=== PATIENT | male | born 1965 | race Caucasian/White ===

== ENCOUNTER → 2017-02-22 | Outpatient (CLI) | payer BC, OTHER ==
[2017-02-22 10:48] LABS: ALBUMIN 3.9 GM/DL (3.2-5.2); ALKALINE PHOSPHATASE 75 U/L (45-117); ALT/SGPT 48 U/L (12-78); ANION GAP 5 MEQ/L (8-16); AST/SGOT 18 U/L (7-37); BILIRUBIN,TOTAL 0.7 MG/DL (0.2-1.0); BLOOD UREA NITROGEN 17 MG/DL (7-18); CALCIUM LEVEL 8.6 MG/DL (8.5-10.1); CARBON DIOXIDE LEVEL 32 MEQ/L (21-32); CHLORIDE LEVEL 105 MEQ/L (98-107); CHOLESTEROL LEVEL 253 MG/DL (<200); CREATININE FOR GFR 1.04 MG/DL (0.70-1.30); GLOMERULAR FILTRATION RATE > 60.0 (>56); GLUCOSE, FASTING 83 MG/DL (70-105); POTASSIUM SERUM 4.7 MEQ/L (3.5-5.1); PSA SCREENING 0.55 NG/ML (< 4.0); SODIUM LEVEL 142 MEQ/L (136-145); TOTAL PROTEIN 6.9 GM/DL (6.4-8.2); TRIGLYCERIDES LEVEL 218 MG/DL (<150)
== END ==
LOC: M LAB 09:25
DX: E78.2 Mixed hyperlipidemia (principal)
CPT/HCPCS: 80053

== ENCOUNTER 2017-05-01 10:26 | Day surgery (SDC) | payer BC, OTHER ==
[2017-05-01] MEDS: NS 1,000 ML IV (10:30)
[2017-05-01] MEDS ORDERED: fentaNYL 100 MCG/2 ML INJECTION (J3010) As Ordered (11:33)
[2017-05-01] MEDS ORDERED: PROPOFOL 200 MG/20 ML VIAL As Ordered (11:33)
[2017-05-01] MEDS ORDERED: LIDOCAINE 2% INJ 100 MG/5 ML SDV (FOR ANES.) As Ordered (11:33)
== END 2017-05-01 12:15 | disposition home or self-care (01) ==
LOC: M OPP 10:26
DX: Z12.11 Encounter for screening for malignant neoplasm of colon (principal); K64.0 First degree hemorrhoids; Z80.0 Family history of malignant neoplasm of digestive organs; R12 Heartburn; K31.89 Other diseases of stomach and duodenum; K44.9 Diaphragmatic hernia without obstruction or gangrene; E78.5 Hyperlipidemia, unspecified; Z79.82 Long term (current) use of aspirin; Z79.899 Other long term (current) drug therapy
CPT/HCPCS: 45378

== ENCOUNTER → 2017-11-25 | Outpatient (CLI) | payer BC, OTHER ==
[2017-11-25 09:57] LABS: ALBUMIN 3.8 GM/DL (3.2-5.2); ALBUMIN/GLOBULIN RATIO 1.19 (1.00-1.93); ALKALINE PHOSPHATASE 86 U/L (45-117); ALT/SGPT 43 U/L (12-78); ANION GAP 7 MEQ/L (8-16); AST/SGOT 19 U/L (7-37); BILIRUBIN,TOTAL 0.3 MG/DL (0.2-1.0); BLOOD UREA NITROGEN 16 MG/DL (7-18); CALCIUM LEVEL 8.4 MG/DL (8.5-10.1); CARBON DIOXIDE LEVEL 28 MEQ/L (21-32); CHLORIDE LEVEL 107 MEQ/L (98-107); CHOLESTEROL LEVEL 265 MG/DL (<200); CHOLESTEROL RISK RATIO 6.625 (<5); CREATININE FOR GFR 0.96 MG/DL (0.70-1.30); FREE T4 0.94 NG/DL (0.76-1.46); GLOMERULAR FILTRATION RATE > 60.0 (>56); GLUCOSE, FASTING 98 MG/DL (70-100); HDL CHOLESTEROL 40 MG/DL (>40); LDL CHOLESTEROL 171 MG/DL (<100); NON-HDL-C 225 MG/DL; POTASSIUM SERUM 4.7 MEQ/L (3.5-5.1); PSA SCREENING 0.41 NG/ML (< 4.0); SODIUM LEVEL 142 MEQ/L (136-145); TRIGLYCERIDES LEVEL 270 MG/DL (<150)
[2017-11-28 00:07] LABS: TESTOSTERONE FREE (DIRECT) 5.9 pg/mL (7.2-24.0)
== END ==
LOC: M LAB 08:52
DX: E78.2 Mixed hyperlipidemia (principal); Z12.5 Encounter for screening for malignant neoplasm of prostate; N52.9 Male erectile dysfunction, unspecified
CPT/HCPCS: 84403

== ENCOUNTER → 2018-02-19 | Outpatient (REF) | payer OTHER ==
[2018-02-22 14:13] LABS: TESTOSTERONE FREE (DIRECT) 13.8 pg/mL (7.2-24.0)
== END ==
LOC: M LABDRWAD 12:51
PROVIDERS: ATTEND Family Medicine
DX: N52.9 Male erectile dysfunction, unspecified (principal)

== ENCOUNTER → 2018-04-26 | Outpatient (REF) | payer OTHER ==
[2018-04-26 13:01] LABS: BASO % 0.6 % (0.0-1.0); EOS # 0.2 10^3/uL (0.0-0.50); EOS % 4.1 % (0.0-3.0); HEMATOCRIT 48.8 % (42.0-52.0); HEMOGLOBIN 15.7 g/dl (13.5-17.5); LYMPH # 1.3 10^3/uL (1.5-4.5); LYMPH % 25.4 % (24.0-44.0); MEAN CORPUSCULAR HGB CONC 32.2 g/dl (32.0-36.5); MONO # 0.5 10^3/uL (0.0-0.8); MONO % 10.4 % (0.0-5.0); NEUTROPHILS % 59.1 % (36.0-66.0); PLATELET COUNT, AUTOMATED 274 10^3/uL (150-450); RED BLOOD COUNT 5.42 10^6/uL (4.30-6.10); WHITE BLOOD COUNT 5.1 10^3/uL (4.0-10.0)
[2018-04-26 13:04] LABS: ALT/SGPT 45 U/L (12-78); BILIRUBIN,TOTAL 0.4 MG/DL (0.2-1.0); BLOOD UREA NITROGEN 18 MG/DL (7-18); CALCIUM LEVEL 8.6 MG/DL (8.5-10.1); CARBON DIOXIDE LEVEL 30 MEQ/L (21-32); CHLORIDE LEVEL 106 MEQ/L (98-107); CHOLESTEROL LEVEL 230 MG/DL (<200); CHOLESTEROL RISK RATIO 5.609 (<5); CREATININE FOR GFR 0.98 MG/DL (0.70-1.30); GLOMERULAR FILTRATION RATE > 60.0 (>56); GLUCOSE, FASTING 85 MG/DL (70-100); HDL CHOLESTEROL 41 MG/DL (>40); LDL CHOLESTEROL 152 MG/DL (<100); NON-HDL-C 189 MG/DL; POTASSIUM SERUM 4.7 MEQ/L (3.5-5.1); SODIUM LEVEL 142 MEQ/L (136-145); TOTAL PROTEIN 7.1 GM/DL (6.4-8.2); TRIGLYCERIDES LEVEL 185 MG/DL (<150)
[2018-04-26 13:14] LABS: TESTOSTERONE 131 NG/DL (241-827)
== END ==
LOC: M SFHCADAM 08:40
PROVIDERS: ATTEND Family Medicine
DX: E34.9 Endocrine disorder, unspecified (principal); R51 Headache; I10 Essential (primary) hypertension

== ENCOUNTER → 2018-05-03 | Outpatient (CLI) | payer BC, OTHER ==
--- NOTE | 2018-05-03 17:08 | REP ---
Clinical: Hypertension and chronic medical renal disease. Technique: Gonzalez scale and color Doppler evaluation of the kidneys and renal vasculature using curved array transducer. Findings: The kidneys are essentially normal in contour size and echogenicity and reniform shape without hydronephrosis, nephrolithiasis, cystic or renal mass lesion. Right kidney measures 12.3 x 5.9 x 4.3 cm . Left kidney measures 12.5 x 7.0 x 5.9 cm. Bladder is incompletely distended and grossly normal by current evaluation. Color Doppler evaluation of the renal vasculature demonstrates normal arterial wave patterns, velocities, renal aortic ratios, resistive indices and the acceleration time. No sonographic evidence for renal arterial stenosis noted. Renal vein is patent. Right Kidney: Peak arterial velocity: 105.2 cm/sec . Renal aortic ratio: 1.2 . Resistive indices: 0.6 - 0.7 . Acceleration times: 0.01 - 0.05 . Left kidney: Peak arterial velocity: 77.4 cm/sec . Renal aortic ratio: 0.9 . Resistive indices: 0.5 - 0.6 . Acceleration times: 0.02 - 0.03 . Impression: 1. Kidneys appear relatively normal. 2. No evidence for renal arterial stenosis. Electronically Signed by Aries Zabala MD 05/03/2018 04:59 P
== END ==
LOC: M RAD 07:24
PROVIDERS: ATTEND Family Medicine
DX: I10 Essential (primary) hypertension (principal)

== ENCOUNTER → 2018-05-23 | Outpatient (REF) | payer OTHER, BC ==
[2018-05-23 19:35] LABS: BASO % 0.7 % (0.0-1.0); EOS # 0.1 10^3/uL (0.0-0.50); EOS % 2.4 % (0.0-3.0); HEMATOCRIT 45.5 % (42.0-52.0); LYMPH # 1.4 10^3/uL (1.5-4.5); LYMPH % 24.2 % (24.0-44.0); MEAN CORPUSCULAR HEMOGLOBIN 29.2 pg (27.0-33.0); MEAN CORPUSCULAR VOLUME 88.5 fl (80.0-96.0); MONO # 0.5 10^3/uL (0.0-0.8); MONO % 8.7 % (0.0-5.0); NEUTROPHILS # 3.8 10^3/uL (1.8-7.7); NEUTROPHILS % 63.8 % (36.0-66.0); PLATELET COUNT, AUTOMATED 327 10^3/uL (150-450); RED BLOOD COUNT 5.14 10^6/uL (4.30-6.10)
[2018-05-23 19:42] LABS: ALBUMIN 4.2 GM/DL (3.2-5.2); ALT/SGPT 38 U/L (12-78); BILIRUBIN,TOTAL 0.7 MG/DL (0.2-1.0); BLOOD UREA NITROGEN 19 MG/DL (7-18); CARBON DIOXIDE LEVEL 30 MEQ/L (21-32); CHLORIDE LEVEL 106 MEQ/L (98-107); FOLATE 20.3 NG/ML; FREE T4 1.03 NG/DL (0.76-1.46); GLOMERULAR FILTRATION RATE > 60.0 (>56); GLUCOSE, FASTING 76 MG/DL (70-100); POTASSIUM SERUM 4.7 MEQ/L (3.5-5.1); RHEUMATOID FACTOR QUANT < 10.0 IU/ML (<15.0); SODIUM LEVEL 141 MEQ/L (136-145); TOTAL PROTEIN 7.1 GM/DL (6.4-8.2); VITAMIN B12 LEVEL 623 PG/ML
[2018-05-23 20:32] LABS: ERYTHROCYTE SEDIMENTATION RATE 4 mm/hr (0-20)
[2018-05-25 14:18] LABS: ANTINUCLEAR ANTIBODIES DIRECT Negative (Negative); Lyme Disease IgG/IgM Antibodie <0.91 ISR (0.00-0.90); Lyme Disease IgM Ab Quantitati <0.80 index (0.00-0.79)
[2018-05-28 00:07] LABS: VITAMIN E(ALPHA TOCOPHEROL) 13.4 mg/L (7.0-25.1); VITAMIN E(GAMMA TOCOPHEROL) 0.8 mg/L (0.5-5.5)
[2018-05-29 14:53] LABS: VITAMIN B1 LEVEL WHOLE BLOOD 138.4 nmol/L (66.5-200.0); VITAMIN B6,PYRIDOXAL PHOSPHATE 47.9 ug/L (5.3-46.7)
== END ==
LOC: M LABNEURO 13:59
PROVIDERS: ATTEND Psychiatry & Neurology Neurology
DX: E07.9 Disorder of thyroid, unspecified (principal); Z11.9 Encounter for screening for infectious and parasitic diseases, unspecified; R51 Headache

== ENCOUNTER → 2018-07-24 | Outpatient (CLI) | payer OTHER, BC ==
[2018-07-24 10:06] LABS: CHOLESTEROL RISK RATIO 3.173 (<5)
== END ==
LOC: M WUC 08:22
PROVIDERS: ATTEND Internal Medicine
DX: E78.5 Hyperlipidemia, unspecified (principal)

== ENCOUNTER → 2018-11-27 | Outpatient (CLI) | payer OTHER, BC ==
[2018-11-27 10:32] LABS: CHOLESTEROL RISK RATIO 3.58 (<5)
== END ==
LOC: M WUC 08:10
DX: E78.5 Hyperlipidemia, unspecified (principal)

== ENCOUNTER → 2019-01-23 | Outpatient (CLI) | payer BC, OTHER ==
[2019-01-23 08:41] LABS: CHOLESTEROL RISK RATIO 1.121 (<5)
== END ==
LOC: M LAB 07:38
PROVIDERS: ATTEND Internal Medicine
DX: E78.5 Hyperlipidemia, unspecified (principal)

== ENCOUNTER → 2019-02-07 | Outpatient (CLI) | payer BC, OTHER ==
--- NOTE | 2019-02-07 16:02 | REP ---
Chest x-ray: Two views. History: chronic bronchitis with productive cough. . Comparison study: January 28, 2011 . Findings: The lungs are well inflated and free of infiltrate. There is minimal plate-like atelectasis in the right lower lobe overlying the dome of the diaphragm on the frontal view and posterior elements of the spine on lateral radiograph. The pleural angles are sharp. The heart size is normal. Pulmonary vasculature is not increased. No significant bony abnormality is seen. Impression: Plate-like atelectasis right lower lobe. Otherwise negative chest x-ray. Electronically Signed by Rell Aranda MD 02/07/2019 03:54 P
== END ==
LOC: M ADAMS 15:40
PROVIDERS: ATTEND Family Medicine
DX: J41.1 Mucopurulent chronic bronchitis (principal)

== ENCOUNTER → 2019-05-13 | Outpatient (CLI) | payer OTHER, BC ==
[2019-05-13 10:52] LABS: CHOLESTEROL RISK RATIO 1.901 (<5)
== END ==
LOC: M WUC 08:13
PROVIDERS: ATTEND Nurse Practitioner Adult Health
DX: E78.5 Hyperlipidemia, unspecified (principal)

== ENCOUNTER 2019-09-09 09:36 | Emergency (ER) | payer BC, OTHER ==
[~2019-09-09] VITALS: Ht 177.8 cm; Wt 85.4 kg
[2019-09-09 11:09] LABS: BASO % 0.6 % (0.0-1.0); EOS # 0.5 10^3/uL (0.0-0.5); EOS % 8.6 % (0.0-3.0); HEMATOCRIT 46.2 % (42.0-52.0); HEMOGLOBIN 15.1 g/dl (13.5-17.5); LYMPH # 1.5 10^3/uL (1.5-5.0); LYMPH % 24.4 % (24.0-44.0); MEAN CORPUSCULAR HEMOGLOBIN 29.2 pg (27.0-33.0); MEAN CORPUSCULAR HGB CONC 32.7 g/dl (32.0-36.5); MEAN CORPUSCULAR VOLUME 89.2 fl (80.0-96.0); MONO # 0.5 10^3/uL (0.0-0.8); MONO % 7.7 % (0.0-5.0); NEUTROPHILS # 3.7 10^3/uL (1.5-8.5); NEUTROPHILS % 58.2 % (36.0-66.0); PLATELET COUNT, AUTOMATED 250 10^3/uL (150-450); RED BLOOD COUNT 5.18 10^6/uL (4.30-6.10); WHITE BLOOD COUNT 6.3 10^3/uL (4.0-10.0)
[2019-09-09 11:35] LABS: ALBUMIN 3.6 GM/DL (3.2-5.2); BILIRUBIN,DIRECT 0.1 MG/DL (0.0-0.2); BILIRUBIN,TOTAL 0.2 MG/DL (0.2-1.0); TOTAL PROTEIN 6.6 GM/DL (6.4-8.2)
[2019-09-09] MEDS ORDERED: LIVA1TAB PO (11:41)
[2019-09-09] MEDS ORDERED: CENT1TAB PO (11:41)
[2019-09-09] MEDS ORDERED: vit d (11:41)
[2019-09-09] MEDS ORDERED: AMLO25TA PO (11:41)
[2019-09-09] MEDS ORDERED: PANT20TA6 PO (11:41)
[2019-09-09] MEDS ORDERED: ALLE24TA7 PO (11:41)
[2019-09-09] MEDS ORDERED: EZET10TA21 PO (11:41)
[2019-09-09] MEDS ORDERED: REPA420I2 SC (11:41)
--- NOTE | 2019-09-09 11:58 | REP ---
CHEST, SINGLE VIEW: There is no evidence of acute infiltrate. No pleural effusion is seen. The heart is normal in size. The mediastinal silhouette is unremarkable. The visualized osseous structures are intact. IMPRESSION: No acute pulmonary disease. Electronically Signed by Julius Gonzalez MD 09/10/2019 10:52 P
[2019-09-09] MEDS ORDERED: PROT1TAB2 PO (13:57)
[2019-09-09 14:00] VITALS: BP 132/93
--- NOTE | 2019-09-09 16:31 | ECGEPIP ---
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
--- NOTE | 2019-09-09 16:34 | ECGEPIP ---
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
== END 2019-09-09 14:17 | disposition home or self-care (01) ==
LOC: M ED 09:36
DX: K21.9 Gastro-esophageal reflux disease without esophagitis (principal); R94.31 Abnormal electrocardiogram [ECG] [EKG]; I10 Essential (primary) hypertension; E78.5 Hyperlipidemia, unspecified; Z82.49 Family history of ischemic heart disease and other diseases of the circulatory system; Z79.899 Other long term (current) drug therapy

== ENCOUNTER → 2019-11-20 | Outpatient (CLI) | payer OTHER, BC ==
[~2019-11-20] MED LIST: ALLE24TA7 PO; AMLO25TA PO; CENT1TAB PO; EZET10TA21 PO; LIVA1TAB PO; PANT20TA6 PO; PROT1TAB2 PO; REPA420I2 SC; vit d
[2019-11-20 10:13] LABS: CHOLESTEROL RISK RATIO 1.879 (<5)
== END ==
LOC: M WUC 08:19
PROVIDERS: ATTEND Internal Medicine
DX: E78.5 Hyperlipidemia, unspecified (principal)

== ENCOUNTER → 2019-11-20 | Outpatient (CLI) | payer OTHER, BC ==
[2019-11-20 10:11] LABS: ALBUMIN 3.8 GM/DL (3.2-5.2); ALT/SGPT 30 U/L (12-78); BILIRUBIN,TOTAL 0.5 MG/DL (0.2-1.0); BLOOD UREA NITROGEN 21 MG/DL (7-18); CALCIUM LEVEL 9.2 MG/DL (8.5-10.1); CARBON DIOXIDE LEVEL 31 MEQ/L (21-32); CHLORIDE LEVEL 108 MEQ/L (98-107); CREATININE FOR GFR 1.04 MG/DL (0.70-1.30); GLOMERULAR FILTRATION RATE > 60.0 (>56); GLUCOSE, FASTING 109 MG/DL (70-100); POTASSIUM SERUM 4.8 MEQ/L (3.5-5.1); SODIUM LEVEL 144 MEQ/L (136-145); TOTAL PROTEIN 7.2 GM/DL (6.4-8.2)
== END ==
LOC: M WUC 08:22
PROVIDERS: ATTEND Family Medicine
DX: Z12.5 Encounter for screening for malignant neoplasm of prostate (principal); I10 Essential (primary) hypertension
CPT/HCPCS: 80053; G0103

== ENCOUNTER → 2020-01-17 | Outpatient (REF) | payer OTHER | LOC: M SFHCADAM 13:20 | PROVIDERS: ATTEND Family Medicine | DX: G47.33 Obstructive sleep apnea (adult) (pediatric) (principal); E78.2 Mixed hyperlipidemia; Z12.5 Encounter for screening for malignant neoplasm of prostate ==

== ENCOUNTER → 2020-06-29 | Outpatient (REF) | payer OTHER ==
[2020-06-29 12:55] LABS: HEMATOCRIT 49.1 % (42.0-52.0); HEMOGLOBIN 16.1 g/dl (13.5-17.5); MEAN CORPUSCULAR HEMOGLOBIN 29.5 pg (27.0-33.0); MEAN CORPUSCULAR HGB CONC 32.8 g/dl (32.0-36.5); MEAN CORPUSCULAR VOLUME 90.1 fl (80.0-96.0); PLATELET COUNT, AUTOMATED 329 10^3/uL (150-450); RED BLOOD COUNT 5.45 10^6/uL (4.30-6.10)
[2020-06-29 15:23] LABS: ALT/SGPT 41 U/L (12-78); BILIRUBIN,TOTAL 0.5 MG/DL (0.2-1.0); BLOOD UREA NITROGEN 17 MG/DL (7-18); CALCIUM LEVEL 9.4 MG/DL (8.5-10.1); CARBON DIOXIDE LEVEL 29 MEQ/L (21-32); CHLORIDE LEVEL 106 MEQ/L (98-107); CHOLESTEROL LEVEL 113 MG/DL (<200); CHOLESTEROL RISK RATIO 1.712 (<5); CREATININE FOR GFR 1.05 MG/DL (0.70-1.30); GLOMERULAR FILTRATION RATE > 60.0 (>56); GLUCOSE, FASTING 93 MG/DL (70-100); HDL CHOLESTEROL 66 MG/DL (>40); LDL CHOLESTEROL 35 MG/DL (<100); NON-HDL-C 47 MG/DL; POTASSIUM SERUM 4.9 MEQ/L (3.5-5.1); SODIUM LEVEL 141 MEQ/L (136-145); TRIGLYCERIDES LEVEL 58 MG/DL (<150)
[2020-06-29 15:24] LABS: TESTOSTERONE 250 NG/DL (241-827)
== END ==
LOC: M SFHCADAM 10:25
PROVIDERS: ATTEND Family Medicine
DX: J41.1 Mucopurulent chronic bronchitis (principal); E78.2 Mixed hyperlipidemia; E34.9 Endocrine disorder, unspecified

== ENCOUNTER → 2020-07-02 | Outpatient (CLI) | payer BC, OTHER ==
--- NOTE | 2020-07-02 11:33 | REP ---
INDICATION: CHRONIC BRONCHITIS WITH PRODUCTIVE MUCOPURULENT COUGH. COMPARISON: Comparison chest x-ray September 09, 2019. TECHNIQUE: Two views.. FINDINGS: The lungs are well inflated and free of infiltrate. The pleural angles are sharp. The heart size is normal. Pulmonary vasculature is not increased. No significant bony abnormality is seen. There is some linear platelike atelectasis in the right base posteriorly overlying the dome of the liver on the frontal view. IMPRESSION: Platelike atelectasis right base. Otherwise negative chest x-ray.. <Electronically signed by Brennan Aranda > 07/02/20 1125
== END ==
LOC: M ADAMS 11:17
PROVIDERS: ATTEND Family Medicine
DX: J41.1 Mucopurulent chronic bronchitis (principal)

== ENCOUNTER → 2020-08-12 | Outpatient (CLI) | payer BC, OTHER ==
--- NOTE | 2020-08-13 07:37 | REP ---
INDICATION: COUGH COMPARISON: Chest x-ray dated 07/02/2020 TECHNIQUE: Axial noncontrast images from the thoracic inlet to the upper abdomen with coronal and sagittal reformations. This CT examination was performed using the following dose reduction techniques: Automated exposure control, adjustment of mA and/or kv according to the patient's size, and use of iterative reconstruction technique. FINDINGS: Bilateral lung [place] are relatively well aerated. Mild linear bibasilar fibroatelectatic changes are noted (right greater than left) and likely chronic. No acute consolidation, effusion, or pneumothorax. Tracheobronchial tree is patent. No obvious axillary, hilar, or mediastinal adenopathy noted. Further evaluation of the mediastinum demonstrates normal thoracic aorta, pulmonary vasculature, and heart/pericardium. Surrounding musculoskeletal structures are intact and without acute osseous abnormality. IMPRESSION: 1. Mild linear bibasilar fibroatelectatic changes. No prior examinations are available for comparison. Consider 3-6 month follow-up examination to confirm stability. 2. No acute consolidation or effusion otherwise noted. <Electronically signed by Aries Zabala > 08/13/20 [id number]
== END ==
LOC: M RAD 11:12
PROVIDERS: ATTEND Nurse Practitioner Family
DX: R05 Cough (principal)

== ENCOUNTER → 2020-12-09 | Outpatient (CLI) | payer BC, OTHER ==
--- NOTE | 2020-12-09 09:07 | REP ---
INDICATION: BRONCHITIS COMPARISON: 07/02/2020 TECHNIQUE: PA and lateral. FINDINGS: The mediastinum and cardiac silhouette are normal. The lung aust[place] are clear and without acute consolidation, effusion, or pneumothorax. The skeletal structures are intact and normal. IMPRESSION: No acute cardiopulmonary process. <Electronically signed by Aries Zabala > 12/09/20 0903
[2020-12-09 11:48] LABS: HEMATOCRIT 47.6 % (42.0-52.0); HEMOGLOBIN 15.6 g/dl (13.5-17.5); MEAN CORPUSCULAR HEMOGLOBIN 29.7 pg (27.0-33.0); MEAN CORPUSCULAR HGB CONC 32.8 g/dl (32.0-36.5); MEAN CORPUSCULAR VOLUME 90.7 fl (80.0-96.0); PLATELET COUNT, AUTOMATED 298 10^3/uL (150-450); RED BLOOD COUNT 5.25 10^6/uL (4.30-6.10); WHITE BLOOD COUNT 7.5 10^3/uL (4.0-10.0)
[2020-12-09 12:24] LABS: ALBUMIN 3.7 GM/DL (3.2-5.2); ALT/SGPT 29 U/L (12-78); BILIRUBIN,TOTAL 0.7 MG/DL (0.2-1.0); BLOOD UREA NITROGEN 14 MG/DL (7-18); CALCIUM LEVEL 8.8 MG/DL (8.5-10.1); CARBON DIOXIDE LEVEL 31 MEQ/L (21-32); CHLORIDE LEVEL 106 MEQ/L (98-107); CHOLESTEROL LEVEL 148 MG/DL (<200); CHOLESTEROL RISK RATIO 2.508 (<5); CREATININE FOR GFR 1.09 MG/DL (0.70-1.30); GLOMERULAR FILTRATION RATE > 60.0 (>56); GLUCOSE, FASTING 91 MG/DL (70-100); HDL CHOLESTEROL 59 MG/DL (>40); LDL CHOLESTEROL 64 MG/DL (<100); NON-HDL-C 89 MG/DL; POTASSIUM SERUM 4.6 MEQ/L (3.5-5.1); SODIUM LEVEL 141 MEQ/L (136-145); TOTAL PROTEIN 7.2 GM/DL (6.4-8.2); TRIGLYCERIDES LEVEL 124 MG/DL (<150)
== END ==
LOC: M WUC 08:47
PROVIDERS: ATTEND Family Medicine
DX: Z12.5 Encounter for screening for malignant neoplasm of prostate (principal); J41.1 Mucopurulent chronic bronchitis; E78.2 Mixed hyperlipidemia; I25.10 Atherosclerotic heart disease of native coronary artery without angina pectoris; R06.00 Dyspnea, unspecified
CPT/HCPCS: 71046; 80053; 80061; 85027; G0103

== ENCOUNTER → 2021-02-23 | Outpatient (CLI) | payer BC, OTHER | LOC: M PLAIMG 15:06 | PROVIDERS: ATTEND Nurse Practitioner Family | DX: R91.8 Other nonspecific abnormal finding of lung field (principal) ==

== ENCOUNTER → 2021-06-09 | Outpatient (CLI) | payer BC, OTHER ==
[2021-06-09 10:54] LABS: BLOOD UREA NITROGEN 17 MG/DL (7-18); CREATININE FOR GFR 0.97 MG/DL (0.70-1.30); GLUCOSE, FASTING 90 MG/DL (70-100)
[2021-06-09 10:55] LABS: ALBUMIN 3.8 GM/DL (3.2-5.2); ALT/SGPT 36 U/L (12-78); BILIRUBIN,TOTAL 0.6 MG/DL (0.2-1.0); CALCIUM LEVEL 9.4 MG/DL (8.5-10.1); CARBON DIOXIDE LEVEL 31 MEQ/L (21-32); CHLORIDE LEVEL 110 MEQ/L (98-107); CHOLESTEROL LEVEL 117 MG/DL (<200); CHOLESTEROL RISK RATIO 2.089 (<5); GLOMERULAR FILTRATION RATE > 60.0 (>56); HDL CHOLESTEROL 56 MG/DL (>40); LDL CHOLESTEROL 48 MG/DL (<100); NON-HDL-C 61 MG/DL; POTASSIUM SERUM 4.8 MEQ/L (3.5-5.1); SODIUM LEVEL 144 MEQ/L (136-145); TOTAL PROTEIN 6.9 GM/DL (6.4-8.2); TRIGLYCERIDES LEVEL 66 MG/DL (<150)
== END ==
LOC: M LAB 09:26
PROVIDERS: ATTEND Family Medicine
DX: E78.2 Mixed hyperlipidemia (principal)

== ENCOUNTER 2021-06-24 08:30 | Outpatient (RCR) | payer BC, OTHER | END 2021-06-26 | LOC: M PT 08:30 | PROVIDERS: ATTEND Family Medicine | DX: G44.86 Cervicogenic headache (principal) ==

== ENCOUNTER 2021-07-08 08:30 | Outpatient (RCR) | payer BC, OTHER ==
[2021-07-27] MEDS ORDERED: OMEP40CA5 (11:06)
[2021-07-27] MEDS ORDERED: LEVOTAB10 PO (11:06)
[2021-07-27] MEDS ORDERED: VITA500C24 PO (11:06)
[2021-07-27] MEDS ORDERED: ZINC1TAB2 PO (11:06)
[2021-07-27] MEDS ORDERED: ASPI81TA26 PO (11:06)
[2021-07-27] MEDS ORDERED: VITA100093 PO (11:06)
== END 2021-07-27 ==
LOC: M PT 08:30
PROVIDERS: ATTEND Family Medicine
DX: G44.86 Cervicogenic headache (principal)

== ENCOUNTER → 2021-08-04 | Outpatient (CLI) | payer BC, OTHER ==
[~2021-08-04] MED LIST changes: +ASPI81TA26 PO; +LEVOTAB10 PO; +OMEP40CA5; +VITA100093 PO; +VITA500C24 PO; +ZINC1TAB2 PO
== END ==
LOC: M LABSMTC 10:07
PROVIDERS: ATTEND Anesthesiology
DX: Z01.812 Encounter for preprocedural laboratory examination (principal)

== ENCOUNTER 2021-08-09 09:11 | Day surgery (SDC) | payer BC, OTHER ==
[~2021-08-09] VITALS: Ht 177.8 cm; Wt 86.2 kg
[~2021-08-09 09:11] MED LIST changes: +LIDOCAINE 2% 100MG/5ML SDV (FOR ANES.) As Ordered ONE; +NS 1,000 ML IV ONE; +fentaNYL 100 MCG/2 ML INJECTION As Ordered ONE; +propofoL 500 MG/50 ML VIAL As Ordered ONE
[2021-08-09 11:19] VITALS: BP 130/86
== END 2021-08-09 11:29 | disposition home or self-care (01) ==
LOC: M OPP 09:11
PROVIDERS: ATTEND Internal Medicine Gastroenterology
DX: Z12.11 Encounter for screening for malignant neoplasm of colon (principal); Z80.0 Family history of malignant neoplasm of digestive organs; D12.0 Benign neoplasm of cecum; K57.30 Diverticulosis of large intestine without perforation or abscess without bleeding; K64.0 First degree hemorrhoids; K44.9 Diaphragmatic hernia without obstruction or gangrene; K31.89 Other diseases of stomach and duodenum; R13.10 Dysphagia, unspecified; R12 Heartburn; Z79.82 Long term (current) use of aspirin; Z79.899 Other long term (current) drug therapy
CPT/HCPCS: 43239; 45380; 88305; J3010

== ENCOUNTER → 2021-12-13 | Outpatient (CLI) | payer BC, OTHER ==
[~2021-12-13] MED LIST changes: -LIDOCAINE 2% 100MG/5ML SDV (FOR ANES.) As Ordered ONE; -NS 1,000 ML IV ONE; -fentaNYL 100 MCG/2 ML INJECTION As Ordered ONE; -propofoL 500 MG/50 ML VIAL As Ordered ONE
[2021-12-13 11:25] LABS: HEMATOCRIT 45.2 % (42.0-52.0); HEMOGLOBIN 14.5 g/dl (13.5-17.5); MEAN CORPUSCULAR HEMOGLOBIN 29.3 pg (27.0-33.0); MEAN CORPUSCULAR HGB CONC 32.1 g/dl (32.0-36.5); MEAN CORPUSCULAR VOLUME 91.3 fl (80.0-96.0); PLATELET COUNT, AUTOMATED 347 10^3/uL (150-450); RED BLOOD COUNT 4.95 10^6/uL (4.30-6.10); WHITE BLOOD COUNT 5.4 10^3/uL (4.0-10.0)
[2021-12-13 12:17] LABS: ALBUMIN 3.7 GM/DL (3.2-5.2); ALT/SGPT 32 U/L (12-78); BILIRUBIN,TOTAL 0.5 MG/DL (0.2-1.0); BLOOD UREA NITROGEN 18 MG/DL (7-18); CALCIUM LEVEL 8.7 MG/DL (8.5-10.1); CARBON DIOXIDE LEVEL 30 MEQ/L (21-32); CHLORIDE LEVEL 107 MEQ/L (98-107); CHOLESTEROL LEVEL 125 MG/DL (<200); CHOLESTEROL RISK RATIO 2.118 (<5); CREATININE FOR GFR 1.22 MG/DL (0.70-1.30); GLOMERULAR FILTRATION RATE > 60.0 (>56); GLUCOSE, FASTING 94 MG/DL (70-100); HDL CHOLESTEROL 59 MG/DL (>40); LDL CHOLESTEROL 47 MG/DL (<100); NON-HDL-C 66 MG/DL; POTASSIUM SERUM 4.3 MEQ/L (3.5-5.1); SODIUM LEVEL 140 MEQ/L (136-145); TOTAL PROTEIN 6.6 GM/DL (6.4-8.2); TRIGLYCERIDES LEVEL 95 MG/DL (<150)
== END ==
LOC: M WUC 08:47
PROVIDERS: ATTEND Family Medicine
DX: E78.2 Mixed hyperlipidemia (principal); I25.10 Atherosclerotic heart disease of native coronary artery without angina pectoris; Z12.5 Encounter for screening for malignant neoplasm of prostate
CPT/HCPCS: 36415; 80053; 80061; 85027; G0103

== ENCOUNTER → 2022-06-16 | Outpatient (REF) | payer OTHER ==
[2022-06-16 17:05] LABS: ALBUMIN 4.1 G/DL (3.2-5.2); ALKALINE PHOSPHATASE 80 U/L (46-116); ALT/SGPT 35 U/L (7.0-40); AST/SGOT 20 U/L (<34); BILIRUBIN,TOTAL 0.7 MG/DL (0.3-1.2); BLOOD UREA NITROGEN 20 MG/DL (9-23); CALCIUM LEVEL 9.5 MG/DL (8.5-10.1); CARBON DIOXIDE LEVEL 29 MMOL/L (20-31); CHLORIDE LEVEL 105 MMOL/L (98-107); CHOLESTEROL LEVEL 150 MG/DL (<200); CHOLESTEROL RISK RATIO 2.52 (<5); CREATININE FOR GFR 1.08 MG/DL (0.70-1.30); GLOMERULAR FILTRATION RATE > 60.0 (>56); GLUCOSE, FASTING 79 MG/DL (60-100); HDL CHOLESTEROL 59.3 MG/DL (>40); LDL CHOLESTEROL 74.1 MG/DL (<100); NON-HDL-C 90.7 MG/DL; POTASSIUM SERUM 4.9 MMOL/L (3.5-5.1); SODIUM LEVEL 140 MMOL/L (136-145); TOTAL PROTEIN 7.3 G/DL (5.7-8.2); TRIGLYCERIDES LEVEL 83 MG/DL (<150)
== END ==
LOC: M SFHCADAM 11:49
PROVIDERS: ATTEND Family Medicine
DX: E78.2 Mixed hyperlipidemia (principal)

== ENCOUNTER → 2022-07-07 | Outpatient (CLI) | payer BC, OTHER ==
[~2022-07-07] MED LIST changes: +GASTROGRAFIN SOLUTION 30ML As Ordered ONE; +ISOVUE-370 76% 100ML VIAL As Ordered ONE
== END ==
LOC: M RAD 15:35
PROVIDERS: ATTEND Family Medicine
DX: K63.9 Disease of intestine, unspecified (principal); R10.9 Unspecified abdominal pain
CPT/HCPCS: 74177; Q9963; Q9967

== ENCOUNTER → 2022-12-27 | Outpatient (CLI) | payer BC, OTHER ==
[~2022-12-27] MED LIST changes: -GASTROGRAFIN SOLUTION 30ML As Ordered ONE; -ISOVUE-370 76% 100ML VIAL As Ordered ONE
[2022-12-27 14:30] LABS: HEMATOCRIT 45.7 % (42.0-52.0); HEMOGLOBIN 15.2 g/dl (13.5-17.5); MEAN CORPUSCULAR HEMOGLOBIN 30.2 pg (27.0-33.0); MEAN CORPUSCULAR HGB CONC 33.3 g/dl (32.0-36.5); MEAN CORPUSCULAR VOLUME 90.7 fl (80.0-96.0); PLATELET COUNT, AUTOMATED 318 10^3/uL (150-450); RED BLOOD COUNT 5.04 10^6/uL (4.30-6.10); WHITE BLOOD COUNT 7.3 10^3/uL (4.0-10.0)
[2022-12-27 15:00] LABS: ALBUMIN 3.9 G/DL (3.2-5.2); ALKALINE PHOSPHATASE 70 U/L (46-116); ALT/SGPT 25 U/L (7.0-40); AST/SGOT 15 U/L (<34); BILIRUBIN,TOTAL 0.6 MG/DL (0.3-1.2); BLOOD UREA NITROGEN 22 MG/DL (9-23); CARBON DIOXIDE LEVEL 29 MMOL/L (20-31); CHLORIDE LEVEL 106 MMOL/L (98-107); CHOLESTEROL LEVEL 142 MG/DL (<200); CHOLESTEROL RISK RATIO 2.24 (<5); CREATININE FOR GFR 1.04 MG/DL (0.70-1.30); GLOMERULAR FILTRATION RATE > 60.0 (>56); GLUCOSE, FASTING 102 MG/DL (60-100); HDL CHOLESTEROL 63.2 MG/DL (>40); NON-HDL-C 78.8 MG/DL; POTASSIUM SERUM 4.5 MMOL/L (3.5-5.1); SODIUM LEVEL 141 MMOL/L (136-145); TOTAL PROTEIN 6.8 G/DL (5.7-8.2); TRIGLYCERIDES LEVEL 74 MG/DL (<150)
== END ==
LOC: M WUC 10:00
PROVIDERS: ATTEND Family Medicine
DX: Z13.1 Encounter for screening for diabetes mellitus (principal); K63.9 Disease of intestine, unspecified; R10.9 Unspecified abdominal pain; E78.2 Mixed hyperlipidemia; Z12.5 Encounter for screening for malignant neoplasm of prostate
CPT/HCPCS: 36415; 80053; 80061; 83036; 85027; G0103

== ENCOUNTER → 2023-06-29 | Outpatient (CLI) | payer BC, OTHER ==
[2023-06-29 13:00] LABS: ALBUMIN 3.5 G/DL (3.2-5.2); ALKALINE PHOSPHATASE 68 U/L (46-116); ALT/SGPT 23 U/L (7.0-40); AST/SGOT 18 U/L (<34); BILIRUBIN,TOTAL 0.7 MG/DL (0.3-1.2); BLOOD UREA NITROGEN 15 MG/DL (9-23); CALCIUM LEVEL 8.6 MG/DL (8.3-10.6); CARBON DIOXIDE LEVEL 28 MMOL/L (20-31); CHLORIDE LEVEL 109 MMOL/L (98-107); CHOLESTEROL LEVEL 111 MG/DL (<200); CHOLESTEROL RISK RATIO 1.82 (<5); CREATININE FOR GFR 1.05 MG/DL (0.70-1.30); GLOMERULAR FILTRATION RATE > 60.0 (>49); GLUCOSE, FASTING 96 MG/DL (74-106); HDL CHOLESTEROL 60.8 MG/DL (>40); LDL CHOLESTEROL 40.2 MG/DL (<100); NON-HDL-C 50.2 MG/DL; POTASSIUM SERUM 4.1 MMOL/L (3.5-5.1); SODIUM LEVEL 143 MMOL/L (136-145); TOTAL PROTEIN 6.2 G/DL (5.7-8.2); TRIGLYCERIDES LEVEL 50 MG/DL (<150)
== END ==
LOC: M WUC 08:54
PROVIDERS: ATTEND Family Medicine
DX: E78.2 Mixed hyperlipidemia (principal); R73.03 Prediabetes

== ENCOUNTER → 2024-07-01 | Outpatient (CLI) | payer BC, OTHER ==
[2024-07-01 13:51] LABS: PSA SCREENING 0.34 NG/ML (< 4.00)
[2024-07-01 13:53] LABS: CHOLESTEROL RISK RATIO 2.23 (<5); HDL CHOLESTEROL 57.3 MG/DL (>40); LDL CHOLESTEROL 56.3 MG/DL (<100); NON-HDL-C 70.7 MG/DL
[2024-07-01 13:57] LABS: HEMATOCRIT 45.6 % (42.0-52.0); HEMOGLOBIN 14.8 g/dl (13.5-17.5); MEAN CORPUSCULAR HEMOGLOBIN 29.4 pg (27.0-33.0); MEAN CORPUSCULAR HGB CONC 32.5 g/dl (32.0-36.5); MEAN CORPUSCULAR VOLUME 90.7 fl (80.0-96.0); PLATELET COUNT, AUTOMATED 313 10^3/uL (150-450); RED BLOOD COUNT 5.03 10^6/uL (4.30-6.10); WHITE BLOOD COUNT 5.7 10^3/uL (4.0-10.0)
[2024-07-01 14:42] LABS: HEMOGLOBIN A1c 5.3 % (4.0-6.0)
== END ==
LOC: M WUC 10:18
PROVIDERS: ATTEND Family Medicine
DX: E78.2 Mixed hyperlipidemia (principal); D31.41 Benign neoplasm of right ciliary body; R73.03 Prediabetes; Z12.5 Encounter for screening for malignant neoplasm of prostate
CPT/HCPCS: 36415; 80061; 83036; 85027; G0103